=== PATIENT | male | born 1990 | race Two or more races ===

== ENCOUNTER 2025-02-01 19:01 | Emergency (ER) | payer OTHER ==
[~2025-02-01] VITALS: Ht 170.2 cm; Wt 106.8 kg
--- NOTE | 2025-02-01 20:53 | ED.PDOC ---
History of Present Illness HPI Comments 34-year-old male who presents with chief complaint of uncontrolled bleeding from medial side of left ankle. Patient reports history of varicose veins to the medial side of his left ankle and rupturing it, today, after washing area with a sponge, while in the shower between [id number], this evening. He comments on copious amount of bleeding, initially. No history of blood thinner use or similar event in the past. Prior to arrival to ED, bleeding was controlled with assistance by EMS personnel wrapping sudden ankle. Patient denies having any pain, numbness, tingling, lightheadedness, shortness of breath, or further acute symptoms. REVIEW OF SYSTEMS: General: No fever, no chills, HEENT: No neck pain, no blurred vision Cardiac: No chest pain. No palpitations. Lungs: No shortness of breath, GI: No abdominal pain, no vomiting Musculoskeletal: No joint pain , no back pain Skin: uncontrolled bleeding from medial side of left ankle, no rash Neuro: No headache, no dizziness, no syncope PHYSICAL EXAM: General: Awake, alert and oriented. No acute distress. Skin: Bleeding varicose vein on medial side of left ankle. Otherwise, skin is warm, dry and intact without rashes or lesions. HEENT: The head is normocephalic and atraumatic. Conjunctivae are clear without exudates or hemorrhage. Sclera is non-icteric. Neck: Normal range of motion. No JVD. Cardiac: Regular rate Respiratory: No signs of respiratory distress. No Stridor. Extremities: Upper and lower extremities are atraumatic in appearance without deformity. Neurological: The patient is awake, alert and oriented to person, place, and time with normal speech. Speech is clear. There is no facial asymmetry. Psychiatric: Appropriate mood and affect. Good judgement and insight. Chief Complaint: Lower Extremity Time Seen by MD: 19:44 Reviewed Notes: Nurses Notes, Medications, Allergies Allergies: Coded Allergies: NO KNOWN ALLERGIES (Unverified , 02/01/25) Home Meds Active Scripts Bacitracin Zinc (Bacitracin) 500 Unit/Gm Oin, 500 UNIT EX BID for 5 Days, #10 OIN Prov:ANGELA YANG MD 02/01/25 Information Source: Patient, Emergency Med Personnel Mode of Arrival: EMS Severity: Moderate Timing: Hours Duration: Since onset Prehospital treatment: 12 Lead EKG, Hoisting [employer] Pile Driving, Treatment (Bleeding controlled bandaging wrap) Past Medical History Past Medical History (Other): History of varicose veins Surgical History: Denies all surgeries Social History Smoker: Non-Smoker Alcohol: Denies ETOH Use Drugs: Denies Drug Use Lives In: Home Was a procedure done? Was a procedure done?: Yes Sedation Sedation?: No Other Procedure Procedure Ligation of varicose vein Indication Ruptured varicose vein, medial side of left ankle Anesthetic 1% lidocaine with epinephrine Prep Unwrapped pre-hospital bandage Clean and irrigate site with normal saline and iodine wash Open laceration repair kit 5.0 Monocryl Success Patient tolerated procedure 2x 5.0 Monocryl stitches used Informed consent obtained: Yes Risks, benefits, and alternati: Yes Differential Dx Considerations may include: Differentials include but limited to ruptured varicose vein, ecchymosis, anemia, among others X-Ray, Labs, Meds, VS Vital Signs Date Time Temp Pulse Resp B/P (MAP) Pulse Ox O2 Delivery O2 Flow Rate FiO2 02/01/25 21:45 98.0 71 18 110/67 (81) 97 98.0 02/01/25 21:45 71 18 97 Room Air* 0 02/01/25 19:10 98.4 82 18 115/68 96 98.4 Time of 1ST Reevaluation: 20:53 Reevaluation 1ST: Unchanged Patient Education/Counseling: Need For Follow Up Family Education/Counseling: No Family Present SEPSIS Sepsis Screen Date sepsis recognized/suspect: Feb 01, 2025 Time Sepsis recognized/suspect: 1909 Recent Procedure: No On Antibiotic Therapy: No Respiratory Rate >20: No Heart Rate >90: No Temp<36 C (96.8 F) or >38.3 C: No SBP <90 or MAP <65 mmHG: No New Acute Mental Status Change: No Is the patient on CPAP, BIPAP,: No Vital Signs Date Time Temp Pulse Resp B/P (MAP) Pulse Ox O2 Delivery O2 Flow Rate FiO2 02/01/25 21:45 98.0 71 18 110/67 (81) 97 98.0 02/01/25 21:45 71 18 97 Room Air* 0 02/01/25 19:10 98.4 82 18 115/68 96 98.4 Departure 1 Departure Time of Disposition: 21:32 Impression: Primary Impression: Bleeding from varicose veins of left lower extremity Disposition: HOME / SELF CARE / HOMELESS Condition: Stable Additional Instructions: ED DISCHARGE INSTRUCTIONS Instructions: Please read all instructions provided in this packet carefully. Although you have been discharged from the Emergency Department, this does not mean that you have a "clean bill of health". No definitive diagnosis for your symptoms has been made today. It is possible that you are in the process of developing a serious illness. This is why you must return to the ED without fail if any new or worsening symptoms (especially if your symptoms include chest paris n, trouble breathing, abdominal pain, fever, headache, confusion, trouble seeing, or trouble walking) It is also very important that you see a primary care provider (PCP) within the next 3-5 days to follow up. If you are unable to get an appointment, return to the ED for re-evaluation. Keep the area dry for the first 24 to 48 hours. After this, you can shower if your doctor says it's okay. Pat the wound dry. Don't soak the wound, such as in a bathtub or swimming pool, until your doctor says it's okay. If your doctor told you how to care for your wound, follow your doctor's instructions. If you did not get instructions, follow this general advice: After the first 24 to 48 hours, wash around the wound with clean water 2 times a day. Don't use hydrogen peroxide or alcohol. They can slow healing. You may cover the area with a thin layer of petroleum jelly, such as Vaseline, and a nonstick bandage. Apply a little bit of petroleum jelly and replace the bandage as needed. Prop up the sore area on a pillow anytime you sit or lie down during the next few days. Try to keep it above the level of your heart. This will help reduce swelling. Avoid any activity that could cause your wound to reopen. Do not touch, pick at, or remove the stitches. Let them go away on their own. e-Prescriptions Bacitracin Zinc (Bacitracin) 500 Unit/Gm Oin 500 UNIT EX BID for 5 Days, #10 OIN Prov: ANGELA YANG MD 02/01/25 Comments MDM: 34-year-old male with bleeding from varicose vein of left lower extremity. Bleeding continued after hemostasis attempted with pressure. Single absorbable suture placed. Bleeding resolved. Decision regarding hospitalization or escalation of hospital level of care: Risks and benefits of admission for further treatment of patient's condition was considered however due to patient's stable condition patient will be discharged to follow up closely or return to care for worsening of condition or inability to follow up. Critical Care Note Critical Care Time?: No Stability Stability form required: No Heart Score Heart Score: Heart Score Response (Comments) Value History N/A 0 EKG N/A 0 Age N/A 0 Risk Factors N/A 0 Troponin N/A 0 Total 0 I personally scribed for ANGELA YANG MD ([facility]) on 02/01/25 at 20:53. Electronically submitted by Gerardo Jordan ([email or web address]). I personally scribed for ANGELA YANG MD ([facility]) on 02/01/25 at 21:53. Electronically submitted by Gerardo Jordan ([email or web address]). ANGELA YANG MD Feb 01, 2025 20:53
[2025-02-01] MEDS ORDERED: BACI-5 EX (21:34)
[2025-02-01 21:45] VITALS: BP 110/67; PULSE 71; RESP 18; TEMP 98; O2SAT 97
== END 2025-02-01 21:48 | disposition home or self-care (01) ==
LOC: EDBD 19:01 → ER 19:01
DX: I83.892 Varicose veins of left lower extremity with other complications (principal)
CPT/HCPCS: 37799